=== PATIENT | female | born 1970 | race Caucasian/White ===

== ENCOUNTER 2024-06-18 07:56 | Emergency (ER) | payer OTHER, SELFPAY ==
[2024-06-18] MEDS ORDERED: Acetaminophen 500 MG TAB ONE (08:15)
== END 2024-06-18 09:19 | disposition home or self-care (01) ==
LOC: BURERS 07:56
DX: B34.9 Viral infection, unspecified (principal); F17.210 Nicotine dependence, cigarettes, uncomplicated
CPT/HCPCS: 87081; 87430; 87804; 99283